=== PATIENT | female | born 1995 | race Caucasian/White ===

== ENCOUNTER 2023-09-05 04:50 | Observation (INO) | payer OTHER ==
[2023-09-05 05:28] LABS: AMNISURE TEST RESULTS NEGATIVE (NEGATIVE)
[2023-09-05 05:35] VITALS: RESP 16
[2023-09-05 05:36] VITALS: PULSE 68; TEMP 97.5; O2SAT 99
[2023-09-05 05:49] LABS: ADD URINE CULTURE? NO (NO); Appearance Clear (Clear); Bacteria None Seen /HPF (None Seen); Bilirubin Negative (Negative); Blood Negative (Negative); Epithelial Cells Rare /HPF (None Seen); Glucose, Urine Negative (Negative); Hyaline Casts NONE SEEN /LPF (0-2); Ketones Negative (Negative); Leukocyte Esterase Negative (Negative); Nitrite Negative (Negative); Ph 6.5 (4.6-8.0); Protein,Urine Dip Trace (Negative); RBC 0-2 /HPF (0-5); WBC 0-2 /HPF (0-5)
[2023-09-05 06:00] LABS: Amphetamine,Urine NEGATIVE (NEGATIVE); Barbiturate,Urine NEGATIVE (NEGATIVE); Benzodiazepine,Urine NEGATIVE (NEGATIVE); Cocaine,Urine NEGATIVE (NEGATIVE); Methadone,Urine NEGATIVE (NEGATIVE); Opiate,Urine NEGATIVE (NEGATIVE); PCP,Urine NEGATIVE (NEGATIVE); THC,Urine NEGATIVE (NEGATIVE)
== END 2023-09-05 06:01 | disposition home or self-care (01) ==
LOC: OB 04:50
PROVIDERS: ADMIT Family Medicine; ATTEND Family Medicine
DX: Z34.83 Encounter for supervision of other normal pregnancy, third trimester (principal); Z3A.39 39 weeks gestation of pregnancy
CPT/HCPCS: 80307; 81001; 84112; G0378; G0379

== ENCOUNTER 2023-09-05 12:50 | Observation (INO) | payer OTHER ==
[2023-09-05 13:16] VITALS: BP 131/85; PULSE 80; RESP 18; TEMP 97.6; O2SAT 98
== END 2023-09-05 14:30 | disposition home or self-care (01) ==
LOC: OB 12:50
PROVIDERS: ADMIT Family Medicine; ATTEND Family Medicine
DX: Z34.83 Encounter for supervision of other normal pregnancy, third trimester (principal); Z3A.39 39 weeks gestation of pregnancy
CPT/HCPCS: G0378; G0379

== ENCOUNTER 2023-09-06 08:22 | Inpatient (IN) | payer OTHER ==
[2023-09-06] MEDS ORDERED: XYLOCAINE 1% HCL 20 ML MDV IJ PRN (08:45)
[2023-09-06] MEDS ORDERED: TYLENOL EXTRA STRENGTH 500 MG PO PRN ×2 (08:45→09:31)
[2023-09-06] MEDS: Lactated Ringers 1,000 ML IV SCH (09:00)
[2023-09-06 09:01] LABS: Absolute Neutrophil Ct (ANC) 9.38 x10^3/uL (1.4-6.9); BASOPHIL % 0.1 % (0.0-0.4); Basophil (Absolute #) 0.01 x10^3/uL (0-0.4); Eosinophil % 0.1 % (0.00-5.0); Eosinophil (Absolute #) 0.01 x10^3/uL (0-0.5); Hematocrit 37.2 % (35-47); Hemoglobin 12.7 g/dL (12.0-16.0); IMMATURE GRAN # 0.04 x10^3u/L (0.00-0.03); IMMATURE GRAN % 0.4 % (0.00-0.4); Lymphocyte (Absolute #) 1.31 x10^3/uL (1.0-4.6); Lymphocytes % 11.6 % (24.0-44.0); Mean Cell Volume 86.3 fL (78-100); Mean Corpuscular Hemoglobin 29.5 pg (26-32); Mean Corpuscular Hgb Concent. 34.1 g/dL (32-36); Mean Platelet Volume 9.3 fL (7.5-11.0); Monocyte (Absolute #) 0.55 x10^3/uL (0.0-1.3); Monocytes % 4.9 % (0.0-12.0); Neutrophil % 82.9 % (36.0-66.0); Platelet Count 242 x10^3/uL (150-450); Red Blood Count 4.31 x10^6/uL (4.1-5.4); Red Cell Distribution Width 13.2 % (11.5-14.0); White Blood Count 11.3 x10^3/uL (4.0-10.5)
[2023-09-06 09:31] LABS: Amphetamine,Urine NEGATIVE (NEGATIVE); Barbiturate,Urine NEGATIVE (NEGATIVE); Benzodiazepine,Urine NEGATIVE (NEGATIVE); Cocaine,Urine NEGATIVE (NEGATIVE); Opiate,Urine NEGATIVE (NEGATIVE); PCP,Urine NEGATIVE (NEGATIVE); THC,Urine NEGATIVE (NEGATIVE)
[2023-09-06] MEDS ORDERED: Anucort-HC SUPPOSITORY PR PRN (09:31)
[2023-09-06] MEDS ORDERED: Mylicon 80MG PO PRN (09:31)
[2023-09-06] MEDS ORDERED: Dulcolax 10 MG SUPP PR PRN (09:31)
[2023-09-06] MEDS ORDERED: CORTISONE 1% CREAM TP PRN (09:31)
[2023-09-06] MEDS ORDERED: Ambien 10 MG PO PRN (09:31)
[2023-09-06] MEDS ORDERED: NORCO 5/325 MG PO PRN (09:31)
[2023-09-06 09:35] LABS: Methadone,Urine NEGATIVE (NEGATIVE)
[2023-09-06 09:37] LABS: ABO TYPING A; Antibody Screen NEGATIVE (NEGATIVE); RH TYPING NEGATIVE
[2023-09-06] MEDS: PITOCIN 30 UNITS/ LR 500 ML 30 UNITS/500 ML PLAST..BAG IV SCH (10:00)
[2023-09-06] MEDS: Dermoplast Spray TP PRN (13:04)
[2023-09-06] MEDS: TUCKS TP PRN (13:05)
[2023-09-06] MEDS: LANSINOH 40 GM TOP PRN (13:05)
[2023-09-06] MEDS: MOTRIN 400 MG PO PRN (13:29)
[2023-09-06] MEDS: Docusate Sodium 100 MG PO SCH (22:20)
[2023-09-07 05:03] LABS: Absolute Neutrophil Ct (ANC) 6.07 x10^3/uL (1.4-6.9); BASOPHIL % 0.1 % (0.0-0.4); Basophil (Absolute #) 0.01 x10^3/uL (0-0.4); Eosinophil % 0.2 % (0.00-5.0); Eosinophil (Absolute #) 0.02 x10^3/uL (0-0.5); Hematocrit 32.1 % (35-47); Hemoglobin 10.9 g/dL (12.0-16.0); IMMATURE GRAN # 0.03 x10^3u/L (0.00-0.03); IMMATURE GRAN % 0.3 % (0.00-0.4); Lymphocyte (Absolute #) 2.85 x10^3/uL (1.0-4.6); Lymphocytes % 29.6 % (24.0-44.0); Mean Cell Volume 87.5 fL (78-100); Mean Corpuscular Hemoglobin 29.7 pg (26-32); Mean Platelet Volume 9.9 fL (7.5-11.0); Monocyte (Absolute #) 0.66 x10^3/uL (0.0-1.3); Monocytes % 6.8 % (0.0-12.0); Platelet Count 244 x10^3/uL (150-450); Red Blood Count 3.67 x10^6/uL (4.1-5.4); Red Cell Distribution Width 13.6 % (11.5-14.0); White Blood Count 9.6 x10^3/uL (4.0-10.5)
--- NOTE | 2023-09-07 08:27 | PCM.DS ---
Discharge Summary Date of Admission: 09/06/23 09:05 Admitting Physician: BENITO FERGUSON Consults: Consults on Case 09/06/23 13:47 Navigation ONCE Primary Care Provider: BENIOT FERGUSON Allergies Allergies No Known Drug Allergies Allergy (Unverified 09/05/23 05:19) Hospital Summary - Hospital Course Hospital Course: patient arrived in spontaneous labor on 09/05 at 39+wks, progressed to full dilation and delivered a viable male with no complications at delivery. well, pain well controlled, mild lochia, ambulatory and taking regular diet with no concerns day #1, she is requesting discharge, breastfed older daughter and Agustín is latching and feeding well. - Vitals & Intake/Output Vital Signs: Vital Signs Temperature 98.5 F 09/07/23 01:30 Pulse Rate 62 09/07/23 01:30 Respiratory Rate 18 09/07/23 01:30 Blood Pressure 117/71 09/07/23 01:30 O2 Sat by Pulse Oximetry 100 09/07/23 01:30 Intake & Output: Intake & Output 09/04/23 09/05/23 09/06/23 09/07/23 11:59 11:59 11:59 11:59 Intake Total 2200 Output Total 300 Balance 1900 Weight 78.471 kg - Lab Result Diagrams: 09/07/23 04:20 Lab Results-Last 24 Hrs: Lab Results-Last 24 Hours 09/06/23 09/06/23 09/06/23 Range/Units 08:50 08:50 09:04 WBC 11.3 H (4.0-10.5) x10^3/uL RBC 4.31 (4.1-5.4) x10^6/uL Hgb 12.7 (12.0-16.0) g/dL Hct 37.2 (35-47) % MCV 86.3 (78-100) fL MCH 29.5 (26-32) pg MCHC 34.1 (32-36) g/dL RDW 13.2 (11.5-14.0) % Plt Count 242 (150-450) x10^3/uL MPV 9.3 (7.5-11.0) fL Gran % 82.9 H (36.0-66.0) % Immature Gran % (Auto) 0.4 (0.00-0.4) % Nucleat RBC Rel Count 0.0 (0.00-0.1) % Eos # (Auto) 0.01 (0-0.5) x10^3/uL Immature Gran # (Auto) 0.04 H (0.00-0.03) x10^3u/L Absolute Lymphs (auto) 1.31 (1.0-4.6) x10^3/uL Absolute Monos (auto) 0.55 (0.0-1.3) x10^3/uL Absolute Nucleated RBC 0.00 (0.00-0.01) x10^3u/L Lymphocytes % 11.6 L (24.0-44.0) % Monocytes % 4.9 (0.0-12.0) % Eosinophils % 0.1 (0.00-5.0) % Basophils % 0.1 (0.0-0.4) % Absolute Granulocytes 9.38 H (1.4-6.9) x10^3/uL Basophils # 0.01 (0-0.4) x10^3/uL Urine Opiates Level NEGATIVE (NEGATIVE) Ur Methadone NEGATIVE (NEGATIVE) Urine Barbiturates NEGATIVE (NEGATIVE) Ur Phencyclidine (PCP) NEGATIVE (NEGATIVE) Urine Amphetamine NEGATIVE (NEGATIVE) U Benzodiazepine Level NEGATIVE (NEGATIVE) Urine Cocaine NEGATIVE (NEGATIVE) Urine Marijuana (THC) NEGATIVE (NEGATIVE) ABO Group A Rh Factor NEGATIVE Antibody Screen NEGATIVE (NEGATIVE) 09/07/23 Range/Units 04:20 WBC 9.6 (4.0-10.5) x10^3/uL RBC 3.67 L (4.1-5.4) x10^6/uL Hgb 10.9 L (12.0-16.0) g/dL Hct 32.1 L (35-47) % MCV 87.5 (78-100) fL MCH 29.7 (26-32) pg MCHC 34.0 (32-36) g/dL RDW 13.6 (11.5-14.0) % Plt Count 244 (150-450) x10^3/uL MPV 9.9 (7.5-11.0) fL Gran % 63.0 (36.0-66.0) % Immature Gran % (Auto) 0.3 (0.00-0.4) % Nucleat RBC Rel Count 0.0 (0.00-0.1) % Eos # (Auto) 0.02 (0-0.5) x10^3/uL Immature Gran # (Auto) 0.03 (0.00-0.03) x10^3u/L Absolute Lymphs (auto) 2.85 (1.0-4.6) x10^3/uL Absolute Monos (auto) 0.66 (0.0-1.3) x10^3/uL Absolute Nucleated RBC 0.00 (0.00-0.01) x10^3u/L Lymphocytes % 29.6 (24.0-44.0) % Monocytes % 6.8 (0.0-12.0) % Eosinophils % 0.2 (0.00-5.0) % Basophils % 0.1 (0.0-0.4) % Absolute Granulocytes 6.07 (1.4-6.9) x10^3/uL Basophils # 0.01 (0-0.4) x10^3/uL Urine Opiates Level (NEGATIVE) Ur Methadone (NEGATIVE) Urine Barbiturates (NEGATIVE) Ur Phencyclidine (PCP) (NEGATIVE) Urine Amphetamine (NEGATIVE) U Benzodiazepine Level (NEGATIVE) Urine Cocaine (NEGATIVE) Urine Marijuana (THC) (NEGATIVE) ABO Group Rh Factor Antibody Screen (NEGATIVE) - Procedures and Test Procedures and Tests throughout Hospitalization: Therapy Orders & Screens 09/06/23 10:57 Standby ROUTINE Comment: Diagnosis: IUP Discharge Exam General Appearance: no apparent distress Neurologic Exam: alert, oriented x 3, cooperative Neck Exam: supple Respiratory Exam: normal breath sounds, lungs clear, No respiratory distress Cardiovascular Exam: regular rate/rhythm, normal heart sounds Gastrointestinal/Abdomen Exam: soft, other (fundus firm, U/2), No tenderness, No mass Extremity Exam: normal inspection, normal range of motion Skin Exam: normal color, warm, dry Final Diagnosis/Problem List - Final Discharge Diagnosis/Problem (1) Vaginal delivery Current Visit: Yes Status: Acute Code(s): O80 - ENCOUNTER FOR FULL-TERM UNCOMPLICATED DELIVERY (2) (infant) Current Visit: Yes Status: Acute Code(s): Z78.9 - OTHER SPECIFIED HEALTH STATUS - Discharge Disposition: Home, Self-Care Condition: Stable Prescriptions: Continue Pnv 119/Iron Fum/Folic Acid [ 19 Tablet] 1 each PO DAILY Follow up with: BENITO FERGUSON MD [Primary Care Provider] - 6 weeks
[2023-09-07 16:03] VITALS: BP 125/70; PULSE 73; RESP 16; TEMP 98.1; O2SAT 98
[2023-09-07] MEDS: FERREX 150 PO SCH (16:10)
[2023-09-07] MEDS: THERAGRAN MULTIVITAMIN PO SCH (16:11)
== END 2023-09-07 18:10 | disposition home or self-care (01) | DRG 807 ==
LOC: OB 08:22 → OBSVTOIN 09:05 → OB 09:05
PROVIDERS: ADMIT Family Medicine; ATTEND Family Medicine
PROC: 10E0XZZ Delivery of Products of Conception, External Approach (ICD-10-PCS; principal; 2023-09-06)
DX: O80 Encounter for full-term uncomplicated delivery (principal); Z37.0 Single live birth; Z3A.39 39 weeks gestation of pregnancy
CPT/HCPCS: 36415; 80307; 85025; 86850; 86900; 86901; 94799; J2590; A9270-GY